=== PATIENT | male | born 1995 | race Caucasian/White ===

== ENCOUNTER 2017-03-26 14:42 | Emergency (ER) | payer BC, OTHER ==
--- NOTE | 2017-03-26 14:59 | EDM.PDOC ---
ED HPI GENERAL MEDICAL PROBLEM - General Chief Complaint: Upper Extremity Injury/Pain Stated Complaint: RT HAND LASTLOWEN Time Seen by Provider: 03/26/17 14:47 - History of Present Illness INITIAL COMMENTS - FREE TEXT/NARRATIVE: HISTORY AND PHYSICAL: History of present illness: The patient is a 22-year-old male with no stated medical problems was right hand dominant presents with pain and swelling to the dorsal aspect of his right hand that started last evening after he had a fall. The patient admits that he turned 22 years of age a few days ago and when out with his friends last night and was outside the bar having a cigarette when he lost his balance and fell onto his right hand which she says went underneath his body not an outstretched hand.. He did not pass out or black out and has no head neck or back pain no facial pain no chest pain or shortness of breath. The patient says that he has had pain and swelling to the dorsal aspect of the hand since the fall but it seems to have gotten worse. Patient says he had an injury several years ago but never went for treatment and never had an x-ray and he self diagnosed himself with a sprain. The patient denies any proximal wrist forearm elbow humerus or shoulder pain and that sign has no other extremity complaints. He has no other systemic issues or problems today and he took no medications for pain nor did he use any ice to the hand. He says his been trying to elevate it. Review of systems: As per history of present illness and below otherwise all systems reviewed and negative. Past medical history: As per history of present illness and as reviewed below otherwise noncontributory. Surgical history: As per history of present illness and as reviewed below otherwise noncontributory. Social history: No reported history of drug or alcohol abuse. Family history: As per history of present illness and as reviewed below otherwise noncontributory. Physical exam: Gen.: Well-developed well-nourished male who is nontoxic and speaking clearly and easily in the ED HEENT: Atraumatic, normocephalic, negative for conjunctival pallor or scleral icterus, mucous membranes moist, throat clear, neck supple, nontender, trachea midline. No evidence of any facial swelling or injuries and teeth and bite are intact Lungs: Clear to auscultation, breath sounds equal bilaterally, chest nontender. Heart: S1S2, regular rate and rhythm no overt murmurs Abdomen: Soft, nondistended, nontender. NABS Pelvis: Stable nontender. Genitourinary: Deferred. Rectal: Deferred. Extremities: Atraumatic full range of motion of all the extremities with the exception of the dorsal aspect of the right hand where there is diffuse soft tissue swelling and tenderness at the second third and fourth metacarpals. The fingers are intact with swelling but no tenderness in the proximal wrist forearm elbow and humerus are all nontender without defects deformities or swelling. Legs are, negative for cords or calf pain. Neurovascular unremarkable. Neuro: Awake, alert, oriented. Cranial nerves II through XII unremarkable. Cerebellum unremarkable. Motor and sensory unremarkable throughout. Exam nonfocal. Diagnostics: Xray right hand Therapeutics: Ice pack, patient declines any medications at this time Sling Impression: Right hand contusion status post fall Definitive disposition and diagnosis as appropriate pending reevaluation and review of above. Right Hand Pain Score (Numeric/FACES): 6 - Related Data Allergies Allergy/AdvReac Type Severity Reaction Status Date / Time No Known Allergies Allergy Verified 03/26/17 14:47 Home Meds: Home Meds Lisdexamfetamine Dimesylate [Vyvanse] 40 mg PO DAILY 03/26/17 [History] Methylphenidate HCl [Methylphenidate ER] 20 mg PO DAILY 03/26/17 [History] Past Medical History - Past Health History Medical/Surgical History: Denies Medical/Surgical History Other Respiratory History: upper respiratory infection Social & Family History - Tobacco Use Smoking Status *Q: Current Every Day Smoker Years of Tobacco use: 4 Packs/Tins Daily: 0.5 - Alcohol Use Days Per Week of Alcohol Use: 0 - Recreational Drug Use Recreational Drug Use: No Review of Systems - Review of Systems Review Of Systems: ROS reveals no pertinent complaints other than HPI. ED EXAM, GENERAL - Physical Exam Exam: See Below (See dictation) Course - Vital Signs Last Recorded V/S: Last Vital Signs Temp 36.7 C 03/26/17 14:50 Pulse 110 H 03/26/17 14:50 Resp 14 03/26/17 14:50 BP 138/71 03/26/17 14:50 Pulse Ox 98 03/26/17 14:50 - Orders/Labs/Meds Orders: Active Orders 24 hr Category Date Time Status Communication Order [RC] STAT Care 03/26/17 14:55 Active Hand Comp Min 3V Rt [CR] Stat Exams 03/26/17 14:55 Taken DME for Discharge [COMM] Stat Oth 03/26/17 15:35 Ordered Departure - Departure Time of Disposition: 15:38 Disposition: Home, Self-Care 01 Condition: Good Clinical Impression: Contusion of hand, right Qualifiers: Encounter type: initial encounter Qualified Code(s): S60.221A - Contusion of right hand, initial encounter Fall Qualifiers: Encounter type: initial encounter Qualified Code(s): W19.XXXA - Unspecified fall, initial encounter - Discharge Information Referrals: PCP,None [Primary Care Provider] - Forms: ED Department Discharge Additional Instructions: The following information is given to patients seen in the emergency department who are being discharged to home. This information is to outline your options for follow-up care. We provide all patients seen in our emergency department with a follow-up referral. The need for follow-up, as well as the timing and circumstances, are variable depending upon the specifics of your emergency department visit. If you don't have a primary care physician on staff, we will provide you with a referral. We always advise you to contact your personal physician following an emergency department visit to inform them of the circumstance of the visit and for follow-up with them and/or the need for any referrals to a consulting specialist. The emergency department will also refer you to a specialist when appropriate. This referral assures that you have the opportunity for followup care with a specialist. All of these measure are taken in an effort to provide you with optimal care, which includes your followup. Under all circumstances we always encourage you to contact your private physician who remains a resource for coordinating your care. When calling for followup care, please make the office aware that this follow-up is from your recent emergency room visit. If for any reason you are refused follow-up, please contact the [facility] emergency department at and ask to speak to the emergency department charge nurse. [facility] Specialty clinic-Plastic Surgery and Hand Surgery Professional [address] [address] [facility] Primary care- Internal Medicine and [facility] [address] [place] [address] Please use ice for the next 24-48 hours and elevate the hand as we discussed using the sling. Use [id number] Tylenol/ibuprofen or Aleve for pain and follow-up with primary care or our hand specialist, , if you feel that the hand is not improving. Return to ER as needed and as discussed. - My Orders Last 24 Hours: My Active Orders 03/26/17 14:55 Communication Order [RC] STAT Hand Comp Min 3V Rt [CR] Stat 03/26/17 15:35 DME for Discharge [COMM] Stat - Assessment/Plan Last 24 Hours: My Active Orders 03/26/17 14:55 Communication Order [RC] STAT Hand Comp Min 3V Rt [CR] Stat 03/26/17 15:35 DME for Discharge [COMM] Stat
[2017-03-26 15:50] VITALS: BP 126/72
--- NOTE | 2017-03-28 16:46 | CR ---
EXAM DATE: 03/26/17 PATIENT'S AGE: 22 Patient: SHEILA HSIEH Facility: [place], [place] Site . Site : 1995 Study: XRay Extremity Right [id number]/3/2017 3:12:52 PM Ordering Physician: Kimberlee Steward Final Report: Pain 3 views of the right hand. Findings: Normal alignment. No acute fractures seen. Soft tissues appear unremarkable. Impression: 1. No acute fracture. Dictated by Kareen Coyne MD @ Mar 26 2017 3:33PM (Electronic Signature) Report Signed by Proxy. KRISTINA
== END 2017-03-26 15:49 | disposition home or self-care (01) ==
LOC: MW.ED 14:42
DX: S60.221A Contusion of right hand, initial encounter (principal); F17.210 Nicotine dependence, cigarettes, uncomplicated; Z79.899 Other long term (current) drug therapy; W19.XXXA Unspecified fall, initial encounter
CPT/HCPCS: 73130; 99283; A4566